=== PATIENT | female | born 1960 | race Caucasian/White ===

== ENCOUNTER 2018-07-19 16:58 | Outpatient (CLI) | payer BC ==
--- NOTE | 2018-07-20 08:14 | RAD ---
RIGHT KNEE THREE VIEWS: 07/19/18 No acute fracture was seen. A small joint effusion is suggested. There are moderate arthritic changes , more prominent than expected for age. These consists of median joint space narrowing, osteophytes i n the beginnings of some sclerosis of the bones of the medial compartment. Some views suggests that t here may be a small loose body or synovial chondroma in the joint posteriorly. Tiny Patellofemoral os teophytes are present. IMPRESSION: 1. Moderate osteoarthritis. 2. Small joint effusion. 3. Probable small loose body in the joint versus small synovial chondroma. Fax result to Jose Mcknight at [phone]. POS: HOME
== END 2018-07-19 16:59 | disposition home or self-care (01) ==
LOC: BURRAD 16:58
PROVIDERS: ATTEND Nurse Practitioner Family
DX: M25.561 Pain in right knee (principal); M17.11 Unilateral primary osteoarthritis, right knee; M25.462 Effusion, left knee

== ENCOUNTER 2019-03-07 16:04 | Outpatient (CLI) | payer BC ==
--- NOTE | 2019-03-07 18:08 | RAD ---
LEFT KNEE FOUR VIEWS: 03/07/19 No fracture was seen. There is medial joint space narrowing and the beginnings of some osteophytes me dially. The articular surfaces are smooth. There is no large joint effusion. IMPRESSION: Mild degenerative changes of the medial compartment. POS: HOME
== END 2019-03-07 16:05 | disposition home or self-care (01) ==
LOC: BURRAD 16:04
PROVIDERS: ATTEND Nurse Practitioner Family
DX: M25.562 Pain in left knee (principal); M17.12 Unilateral primary osteoarthritis, left knee